=== PATIENT | male | born 1985 | race Caucasian/White ===

== ENCOUNTER 2017-04-22 23:07 | Emergency (ER) | payer OTHER ==
[~2017-04-22] VITALS: Ht 182.9 cm; Wt 94.3 kg
== END 2017-04-23 00:21 | disposition home or self-care (01) ==
LOC: ED 23:07
PROC: 0HQ1XZZ Repair Face Skin, External Approach (ICD-10-PCS; principal; 2017-04-22)
DX: S01.511A Laceration without foreign body of lip, initial encounter (principal); S60.222A Contusion of left hand, initial encounter; Y04.0XXA Assault by unarmed brawl or fight, initial encounter
CPT/HCPCS: 12051; 73130; 99283